=== PATIENT | female | born 1970 | race Caucasian/White ===

== ENCOUNTER 2019-07-14 11:32 | Observation (INO) | payer MEDICARE ==
[~2019-07-14] VITALS: Ht 152.4 cm; Wt 77.7 kg
--- NOTE | 2019-07-14 12:24 | NUR ---
PT NOT IN LOBBY
[2019-07-14] MEDS ORDERED: ONDANSETRON 2MG/ML, 2ML IVPush ONE (13:30)
[2019-07-14] MEDS ORDERED: SODIUM CHLORIDE FLUSH 10ML SYR IVF ONE (13:30)
[2019-07-14] MEDS ORDERED: ONDANSETRON 2MG/ML, 2ML ONE (13:33)
[2019-07-14] MEDS ORDERED: MORPHINE SULFATE 4 MG/ML, 1ML ONE ×3 (13:33→21:14)
[2019-07-14] MEDS: MORPHINE SULFATE 4 MG/ML, 1ML IVPush PRN ×2 (14:01→19:55)
[2019-07-14] MEDS ORDERED: PROPOFOL 10 MG/ML, 20ML ONE (14:12)
--- NOTE | 2019-07-14 14:40 | NUR ---
consent form for ankle reduction with sedation signed by pt and MD Marino. at bedside.
--- NOTE | 2019-07-14 14:40 | NUR ---
task RN note: report from GRAY Owusu. this RN to monitor pt during sedation for ankle reduction. EDMD Marino and EDMAIRA Mcallister notified pt is 87-90% on room air pre-procedure. all monitors including etc02 in place.
--- NOTE | 2019-07-14 14:58 | NUR ---
task RN note: left ankle reduced with sedation. sedation admin by EMILY Marino, reduction completed by KARIN Mcallister, splint placed by STEFFANY Chung, pre/intra/post sedation monitoring by this RN per policy. pt was medicated with a total of 100 mg propofol (administered by EMILY Marino). procedure start time (initial dose propofol admin) at 1442, ankle reduced at 1444 after sedation acheived, pt back to baseline mental status at 1450. see paper charting for intra procedure vital signs, propofol admin times, and recovery scores. pt tolerated procedure well. splint placed, pt rates left LE pain at 4/10 (tolerable per pt) at this time. resps even and unlabored. pt drowsy, awakens to voice, oriented x 4. pt able to move toes of left foot, splint placed. RN able to palpate 4+ left dorsalis pedal pulse, pt states she is able to feel light sensation to toes of left foot. all monitors including end tidal co2 in place pre/intra/post procedure. pt is on 2L oxygen via NC, satting 97-98%.
[2019-07-14] MEDS ORDERED: PROPOFOL 10 MG/ML, 20ML IVPush ONE (15:00)
--- NOTE | 2019-07-14 15:24 | NUR ---
md buck and tata weeks at [facility] for reassessment. bedside report given to RN Анна who is to assume care. pt a&ox4, repss even and unlabored. rates pain to left le 10. nsr on quality assurance monitor with no ectopy. pt satting 98% on 2L NC. resps even and unlabored. pt speaking in full sentences, no n/v. nadn at this time.
--- NOTE | 2019-07-14 15:46 | NUR ---
PT DESATS TO 86% RA, PT IMPROVES WHEN SUPPL O2 PUT BACK IN PLACE @1.5L/NC- DR OGDEN AWARE, WCTM PT UNTIL ABLE TO TITRATE OFF SUPPL O2 FOR DC HOME.
--- NOTE | 2019-07-14 16:00 | NUR ---
PT UPRIGHT ON GURNEY AWAKE & COMFORTABLE, RESPONDS APPROP TO STAFF, NAD WITH SUPPL O2 IN PLACE, COMFORT MEASURES PROVIDED, AT BS, CALL LIGHT WITHIN REACH.
--- NOTE | 2019-07-14 17:00 | NUR ---
PT REMAINS UPRIGHT ON GURNEY AWAKE & COMFORTABLE, RESPONDS APPROP TO STAFF, NAD WITH SUPPL O2 IN PLACE, UNABLE TO TOLERATE RA YET- ERP AWARE, COMFORT MEASURES PROVIDED, AT BS, CALL LIGHT WITHIN REACH.
--- NOTE | 2019-07-14 17:36 | NUR ---
PT TAKEN TO BR VIA WC, DESATS TO 86-87% WITH ACTIVITY ON RA & IS VERY UNSTEADY ON TRANSFER WITH 1-ASSIST TO COMMODE/DR MELVI NARVAEZ AWARE.
--- NOTE | 2019-07-14 18:02 | NUR ---
PT UPRIGHT ON GURNEY AWAKE & COMFORTABLE, RESPONDS APPROP TO STAFF, MULT ATTEMPTS TO TITRATE SUPPL O2 TO RA REMAIN UNSUCCESSFUL- DR OGDEN AWARE, OTHERWISE NAD WITH SUPPL O2 IN PLACE, COMFORT MEASURES PROVIDED, AT BS, CALL LIGHT WITHIN REACH.
[2019-07-14] MEDS ORDERED: prozac PO (18:44)
[2019-07-14] MEDS ORDERED: gabapentin PO (18:44)
[2019-07-14] MEDS ORDERED: lipitor (18:44)
--- NOTE | 2019-07-14 19:05 | NUR ---
REPORT GIVEN TO BLAIRE
--- NOTE | 2019-07-14 19:38 | NUR ---
PT DOWN TO 82% ON RA, AWAKE SITTING UP WILL MEDICATE FOR PAIN AND GET FOOD
[2019-07-14 19:50] LABS: ALANINE AMINOTRANSFERASE 23 U/L (12-78); ALBUMIN 3.4 g/dL (3.4-5.0); ANION GAP 5 mmol/L (5-15); CHLORIDE 108 mmol/L (98-107); CREATININE 1.22 mg/dL (0.55-1.02)
[2019-07-14 19:52] LABS: ALKALINE PHOSPHATASE 96 U/L (45-117); BILIRUBIN,TOTAL 0.7 mg/dL (0.2-1.0); TOTAL PROTEIN 7.2 g/dL (6.4-8.2)
--- NOTE | 2019-07-14 20:00 | NUR ---
PT REQUESTING PAIN MEDICATION AND FOOD, SANDWICH AND MORPHINE GIVEN, EKG BEING DONE AT [facility]
[2019-07-14 20:27] LABS: TROPONIN I < 0.015 ng/mL (0.000-0.045)
[2019-07-14 20:48] LABS: MD YES; MEAN CORPUSCULAR HEMOGLOBIN 30.9 pg (27.0-34.8); MEAN CORPUSCULAR HGB CONC 33.3 g/dL (32.4-35.8); MEAN CORPUSCULAR VOLUME 92.9 fL (80-100); MEAN PLATELET VOLUME 8.3 fL (7.4-10.4); PLATELET COUNT 264 x10^3/uL (130-400); RED BLOOD COUNT 4.75 x10^6/uL (3.82-5.3); RED CELL DISTRIBUTION WIDTH 14.2 % (9.6-15.2)
[2019-07-14 21:03] LABS: <PLATELET ESTIMATE> ADEQUATE; <PLT MORPHOLOGY> NORMAL PLT MORPH; <RBC MORPHOLOGY> NORMAL; EOS#(MANUAL) 0.16 x10^3/uL (0.0-0.4); EOS% (MANUAL) 2 % (1-7); LYMPH#(MANUAL) 2.08 x10^3/uL (1-3.4); LYMPHS% (MANUAL) 26 % (22-44); MONOS#(MANUAL) 0.32 x10^3/uL (0.3-2.7); MONOS% (MANUAL) 4 % (2-9); SEG#(MANUAL) 5.44 x10^3/uL (1.8-6.8); SEGS% (MANUAL) 68 % (42-75)
--- NOTE | 2019-07-14 21:10 | NUR ---
PT STILL HAVING PAIN, SAHM IS GOING TO ORDER MORE PAIN MEDS
[2019-07-14] MEDS ORDERED: MORPHINE SULFATE 4 MG/ML, 1ML IVPush PRN (21:30)
[2019-07-14] MEDS ORDERED: SODIUM CHLORIDE FLUSH 10ML SYR IVF PRN (21:30)
[2019-07-14 22:30] VITALS: BP 108/74
[2019-07-14 23:14] VITALS: BP 108/74
[2019-07-15] VITALS (11 sets, daily range): BP systolic 104–118; BP diastolic 64–83
[2019-07-15] MEDS: HYDROcodone/APAP 5/325 TABLET PO PRN ×3 (01:26→12:00)
[2019-07-15] MEDS ORDERED: TRAZODONE 50MG TABLET PO PRN (01:30)
[2019-07-15] MEDS ORDERED: ACETAMINOPHEN 325 MG TABLET PO PRN (01:30)
[2019-07-15] MEDS: HEPARIN 5,000 UNITS/ML, 1ML SQ SCH ×2 (01:30→09:20)
[2019-07-15] MEDS ORDERED: DOCUSATE 100 MG CAPSULE PO PRN (01:30)
[2019-07-15] MEDS ORDERED: ONDANSETRON ODT 4 MG PO PRN (01:30)
[2019-07-15] MEDS ORDERED: hydrALAzine 20 MG/ML, 1ML IVPush PRN (01:30)
[2019-07-15] MEDS ORDERED: POTASSIUM CHLORIDE 20 MEQ TAB.ER.PRT PO ONE (01:30)
[2019-07-15] MEDS ORDERED: DOCU100C33 PO (10:21)
--- NOTE | 2019-07-15 13:05 | NUR ---
MERLIN COON - Fall Risk Medication(s) present and receiving anticoagulants.
[2019-07-15] MEDS ORDERED: HYDR-3240 PO (15:48)
== END 2019-07-15 17:10 | disposition home or self-care (01) ==
LOC: ED 14:36 → EDIP 21:12 → INTOOBSV 21:12 → 4NE 22:25
PROVIDERS: ADMIT Internal Medicine; ATTEND Internal Medicine
DX: S82.52XA Displaced fracture of medial malleolus of left tibia, initial encounter for closed fracture (principal); S82.62XA Displaced fracture of lateral malleolus of left fibula, initial encounter for closed fracture; J96.01 Acute respiratory failure with hypoxia; N17.9 Acute kidney failure, unspecified; E78.5 Hyperlipidemia, unspecified; F33.9 Major depressive disorder, recurrent, unspecified; E87.6 Hypokalemia; Z86.73 Personal history of transient ischemic attack (TIA), and cerebral infarction without residual deficits; Z87.891 Personal history of nicotine dependence; X50.1XXA Overexertion from prolonged static or awkward postures, initial encounter; Y93.89 Activity, other specified; Y92.89 Other specified places as the place of occurrence of the external cause
CPT/HCPCS: 27752; 36415; 71045; 73590; 73600; 73610; 73630; 80053; 84484; 85025; 93005; 96372; 96374; 96375; 96376; 97162; 97166; 97530; 99284; G0378; J1644; J2270; J2405

== ENCOUNTER 2019-07-24 09:38 | Day surgery (SDC) | payer MEDICARE ==
[~2019-07-24] VITALS: Ht 152.4 cm; Wt 79.1 kg
[~2019-07-24 09:38] MED LIST: DOCU100C33 PO; HYDR-3240 PO; gabapentin PO; lipitor; prozac PO
[2019-07-24] MEDS ORDERED: LACTATED RINGERS 1,000 ML IV SCH (09:59)
[2019-07-24] MEDS ORDERED: SCOPOLAMINE PATCH, 1.5MG PATCH.TD72 TD STA (10:00)
[2019-07-24] MEDS ORDERED: GABAPENTIN 300 MG CAPSULE PO STA (10:00)
[2019-07-24] MEDS ORDERED: ACETAMINOPHEN 500 MG TABLET PO STA (10:00)
[2019-07-24 10:08] VITALS: BP 122/93
[2019-07-24] MEDS ORDERED: ONDANSETRON 2MG/ML, 2ML ONE (10:09)
[2019-07-24] MEDS ORDERED: ROCURONIUM 10MG/ML,5ML ONE (10:09)
[2019-07-24] MEDS ORDERED: FENTANYL PF 250 MCG/5ML ONE (10:09)
[2019-07-24] MEDS ORDERED: GLYCOPYRROLATE 0.2MG/1ML, 5ML ONE (10:09)
[2019-07-24] MEDS ORDERED: NEOSTIGMINE 1 MG/ML, 10ML ONE (10:09)
[2019-07-24] MEDS ORDERED: DEXAMETHASONE 4 MG/ML, 1ML ONE (10:09)
[2019-07-24] MEDS ORDERED: CEFAZOLIN 1,000 MG ONE (10:09)
[2019-07-24] MEDS ORDERED: PROPOFOL 10 MG/ML, 20ML ONE (10:09)
[2019-07-24] MEDS ORDERED: MIDAZOLAM 1 MG/ML, 2ML ONE (10:09)
[2019-07-24] MEDS ORDERED: BUPIVACAINE/PF 0.5% ONE (10:10)
[2019-07-24] MEDS ORDERED: EPINEPHRINE 1 MG/ML, 1ML ONE (10:10)
[2019-07-24] MEDS ORDERED: NEOSPORIN OINT, 15GM ONE (10:10)
[2019-07-24] MEDS ORDERED: LABETALOL 5MG/ML, 20ML IV PRN (10:30)
[2019-07-24] MEDS ORDERED: hydrALAzine 20 MG/ML, 1ML IV PRN (10:30)
[2019-07-24] MEDS ORDERED: PLEASE ENTER HEIGHT AND WEIGHT MC SCH (10:30)
[2019-07-24] MEDS ORDERED: FENTANYL PF 100 MCG/2ML IV PRN (10:30)
[2019-07-24] MEDS ORDERED: HALOPERIDOL 5 MG/ML IV PRN (10:30)
[2019-07-24] MEDS ORDERED: MORPHINE SULFATE 4 MG/ML, 1ML IVPush PRN (10:30)
[2019-07-24] MEDS ORDERED: PROMETHAZINE 25 MG/ML, 1ML IV PRN (10:30)
[2019-07-24] MEDS ORDERED: OXYcodone 5 MG/5 ML ORAL.SOL UDC PO PRN (10:30)
[2019-07-24] MEDS ORDERED: MEPERIDINE/PF 25MG/ML,1ML IVPush PRN (10:30)
[2019-07-24] MEDS ORDERED: ROPIvacaine/PF 0.2%, 20 ML ONE ×2 (10:37)
[2019-07-24] MEDS ORDERED: PHENYLEPHRINE 10 MG/ML ONE (11:02)
[2019-07-24] MEDS ORDERED: HYDROmorphone 1 MG/ML, 1ML INJ ONE ×2 (12:57→13:35)
[2019-07-24] MEDS ORDERED: OXYcodone 5 MG/5 ML ORAL.SOL UDC ONE (12:58)
[2019-07-24] MEDS: HYDROmorphone 2 MG/ML, 1ML IVPush PRN ×3 (13:08→13:35)
== END 2019-07-24 15:35 | disposition home or self-care (01) ==
LOC: OUT 09:38
PROVIDERS: ATTEND Orthopaedic Surgery
DX: S82.852A Displaced trimalleolar fracture of left lower leg, initial encounter for closed fracture (principal); E78.5 Hyperlipidemia, unspecified; F32.9 Major depressive disorder, single episode, unspecified; Z79.891 Long term (current) use of opiate analgesic; Z79.899 Other long term (current) drug therapy; Z86.73 Personal history of transient ischemic attack (TIA), and cerebral infarction without residual deficits; Z87.891 Personal history of nicotine dependence; X50.1XXA Overexertion from prolonged static or awkward postures, initial encounter; Y93.89 Activity, other specified; Y92.89 Other specified places as the place of occurrence of the external cause; Y99.8 Other external cause status
CPT/HCPCS: 27823; 64447; 64450; 73600; C1713; J0171; J0690; J1100; J1170; J2250; J2370; J2405; J2704; J2710; J2795; J3010; J7120; 76000